=== PATIENT | female | born 1970 | race Asian ===

== ENCOUNTER 2017-02-01 19:25 | Emergency (ER) | payer OTHER ==
[~2017-02-01] VITALS: Ht 154.9 cm; Wt 73.6 kg
[2017-02-01 19:40] VITALS: BP 112/57; PULSE 75; RESP 16; O2SAT 98
[2017-02-01] MEDS ORDERED: Albuterol-Ipratropium 3 mL Inhalation Solution ONE (20:35)
[2017-02-01 20:45] VITALS: PULSE 72; RESP 18; O2SAT 100
--- NOTE | 2017-02-01 20:53 | ED.REPORT ---
HPI-URI / Cough / Cold Date of Service February 01, 2017 ED Provider: Abhi Blunt MD Patient is a 46 year old female with a history of asthma who presents to the ED complaining of sore throat onset 5 days ago. Associated symptoms include shortness of breath, cough, rhinorrhea and body aches. Nursing Notes Stated Complaint: COLD/FLU-LIKE SYPMTOMS Chief Complaint: FLU/Cold Symptoms Nursing Notes Reviewed: Yes Allergies: Coded Allergies: niacin (Verified Allergy, Mild, RASH, 02/01/17) General Time Seen by MD: 20:53 Chief Complaint Sore throat Hx Obtained From: Patient Arrived By: Walk-in Onset Occurred: 5 days ago Symptom Duration: Since onset Associated with: Reports: Body aches, Cough, Rhinorrhea, Shortness of breath Recent Healthcare: No recent hospitalization, Recent doctor visit Past Medical History Past Medical History Reports: Asthma Social History Other Social History: Good social support, Ambulatory Status Independent Review of Systems Basic Review of Systems Cardiovascular: No chest pain Ears / Nose / Throat: Reports: Sore throat Respiratory: Reports: Non-productive cough, Shortness of breath, Denies: Pleuritic pain Allergy / Immune: Reports: Rhinorrhea Complete sys rev & neg: except as marked. Musculoskeletal: Reports: Myalgia Physical Exam Initial Vital Signs Vital Signs (First) Date Time Temp Pulse Resp B/P Pulse Ox O2 Delivery O2 Flow Rate FiO2 02/01/17 19:40 37.1 75 16 112/57 98 Room Air Initial VS: Reviewed General/Constitutional: Awake, Alert Mouth: Positive: Mucous membranes dry Pharynx / Tonsils / Uvula: Positive: Tonsillar erythema L, Tonsillar erythema R Respiratory / Chest: Atraumatic, No respiratory distress Wheezing / Retractions: Positive: Wheezing expiratory Head / Eyes: Atraumatic, Normocephalic, PERRL, EOMI Neck: Atraumatic, Supple, Full range of motion Cardiovascular: Heart rate NL, Regular rhythm, Heart sounds NL Abdomen: Atraumatic, Soft, Non-tender Skin: Atraumatic, Color NL, No rash, Warm, Dry Neurologic: Oriented X3, Speech NL, No motor deficits, No sensory deficits Upper Extremity / MS: Atraumatic, Full range of motion Psychiatric: Affect NL, Mood NL Re-Eval/Medical Decision Med Decision/Clinical Course Pulmonary emboli rule out criteria met. Low risk for pulmonary emboli. Low risk well score. No risk factors for pulmonary emboli. D-dimer testing not indicated. Re-Evaluation/Progress : Time of Eval: 22:15 Re-Evaluation/Progress Note: Lungs were essentially clear. Patient is just complaining of nasal congestion. Discussed plan for treatment and discharge. The patient understands and agrees to the plan for discharge. All questions were addressed. Counseled Regarding: Diagnosis, Lab results, Need for follow-up, When/why to return to ED Discharge & Departure Impression: Primary Impression: Acute asthma exacerbation Asthma severity: mild persistent Qualified Code: J45.31 - Mild persistent asthma with (acute) exacerbation Additional Impression: Sinusitis Sinusitis location: maxillary Chronicity: acute Recurrence: non-recurrent Qualified Code: J01.00 - Acute maxillary sinusitis, unspecified Disposition: Home Discharge Condition All VS Reviewed: Yes Condition: Stable Patient Instructions: Asthma (GEN), Sinusitis (ED) Additional Instructions: Albuterol 2 puffs every 3 hours as needed for wheezing. Prednisone daily for 5 days. Afrin twice daily for the next 3 days as directed. That is a nasal spray. Augmentin twice daily for 7 days. Return if any problems or any new or worsening symptoms. Follow up with your doctor next week. Call Friday. Referrals: Judah Mosley PA-C (PCP) Neal Attestation Portions of this note were transcribed by Vianca Corrales. I, Dr. Blunt personally performed the history, physical exam and medical decision-making; I reviewed and confirmed the accuracy of the information in the transcribed note. Signed by:Neal De La Paz, 02/01/17 and 2117 copies to: Judah Mosley PA-C, Todd P DO February 01, 2017 20:53 Eva Corrales February 01, 2017 21:18
[2017-02-01] MEDS ORDERED: Albuterol-Ipratropium 3 mL Inhalation Solution NEB ONE (21:05)
[2017-02-01] MEDS ORDERED: _Proair 200 Puff/8.5 GM Inhaler INHALATION PRN (21:05)
[2017-02-01] MEDS ORDERED: Dexamethasone 20 mg/2 mL Oral Solution PO ONE (21:05)
[2017-02-01 21:17] VITALS: PULSE 77; RESP 16; O2SAT 100
[2017-02-01 22:33] VITALS: BP 102/63; PULSE 81; RESP 18; O2SAT 99
== END 2017-02-01 22:34 | disposition home or self-care (01) ==
LOC: SED 19:25
DX: J45.31 Mild persistent asthma with (acute) exacerbation (principal); J01.00 Acute maxillary sinusitis, unspecified; J45.909 Unspecified asthma, uncomplicated; Z88.8 Allergy status to other drugs, medicaments and biological substances
CPT/HCPCS: 94640; 94644; 99284; J7620